=== PATIENT | female | born 2000 | race Caucasian/White ===

== ENCOUNTER 2022-01-29 14:03 | Emergency (ER) | payer OTHER ==
[~2022-01-29] VITALS: Ht 157.5 cm; Wt 59.0 kg
[2022-01-29] MEDS ORDERED: ZOLOFT50 MG PO (14:16)
== END 2022-01-29 17:06 | disposition home or self-care (01) ==
LOC: ER 14:03
DX: J02.0 Streptococcal pharyngitis (principal); Z88.1 Allergy status to other antibiotic agents